=== PATIENT | female | born 1950 | race Caucasian/White ===

== ENCOUNTER 2016-09-24 18:52 | Emergency (ER) | payer OTHER, MEDICARE ==
[~2016-09-24] VITALS: Ht 172.7 cm; Wt 79.8 kg
[2016-09-24 19:07] VITALS: BP_SYST 145
[2016-09-24 19:24] LABS: BILIRUBIN,URINE 1+ (NEGATIVE); BLOOD, URINE NEGATIVE (NEGATIVE); CLARITY/URINE CLEAR (CLEAR); COLOR,URINE YELLOW (YELLOW); GLUCOSE,URINE NEGATIVE (NEGATIVE); KETONES,URINE NEGATIVE (NEGATIVE); LEUKOCYTE ESTERASE ,URINE NEGATIVE (NEGATIVE); NITRITE, URINE NEGATIVE (NEGATIVE); PROTEIN URINE NEGATIVE (NEGATIVE)
[2016-09-24 20:47] LABS: EOSINOPHILS # (AUTO) 0.3 K/uL (0.0-0.4); RED BLOOD CELL COUNT(AUTO) 3.27 MIL/uL (4.2-6.2)
[2016-09-24 20:52] LABS: CALCIUM 8.6 mg/dL (8.4-11.0); CREATININE 0.57 mg/dL (0.55-1.30); POTASSIUM 3.3 mmol/L (3.5-5.1)
[2016-09-24 20:53] LABS: BASOPHILS # (AUTO) 0.2 K/uL (0.0-0.2); BASOPHILS % (AUTO) 1.3 % (0.0-2.0); EOSINOPHILS % (AUTO) 1.8 % (0.0-4.0); HEMATOCRIT 35.9 % (36-48); HEMOGLOBIN 12.4 g/dL (12.0-16.0); LYMPHOCYTES # (AUTO) 1.1 K/uL (1.0-5.5); LYMPHOCYTES % (AUTO) 7.4 % (20.5-51.5); MEAN CORPUSCULAR HEMOGLOBIN 38 pg (27-31); MEAN CORPUSCULAR HGB CONC 34 % (32-36); MEAN CORPUSCULAR VOLUME 110 fL (79.0-98.0); MONOCYTES # (AUTO) 0.4 K/uL (0.0-1.0); MONOCYTES % (AUTO) 2.9 % (1.7-9.3); NEUTROPHILS # (AUTO) 13.1 K/uL (1.8-7.7); NEUTROPHILS % (AUTO) 86.6 % (40.0-70.0); PLATELET COUNT (AUTO) 134 K/uL (130-430); RED CELL DISTRIBUTION WIDTH 13.5 % (9.0-15.0); WHITE BLOOD COUNT (AUTO) 15.1 K/uL (4.8-10.8)
[2016-09-24 20:56] LABS: INR 1.3 (0.8-1.2); PROTHROMBIN TIME 14.5 SECS (9.5-12.5)
[2016-09-24 20:58] LABS: ALBUMIN 2.9 g/dL (3.4-4.8); TOTAL BILIRUBIN 2.9 mg/dL (0.0-1.0); TOTAL PROTEIN, SERUM 7.1 g/dL (6.4-8.3)
[2016-09-24 21:49] VITALS: BP_SYST 145
== END 2016-09-24 21:49 | disposition home or self-care (01) ==
LOC: SED 18:52
DX: K72.90 Hepatic failure, unspecified without coma (principal); R03.0 Elevated blood-pressure reading, without diagnosis of hypertension; R31.9 Hematuria, unspecified; F10.10 Alcohol abuse, uncomplicated
CPT/HCPCS: 36415; 76700-TC; 80053; 81003; 82140-TC; 83880; 85025; 85610-TC; 85730-TC; 99285